=== PATIENT | female | born 1965 | race Caucasian/White ===

== ENCOUNTER → 2024-05-22 07:38 | Outpatient (REF) | payer OTHER, SELFPAY | LOC: HWWDC 07:38 | PROVIDERS: ATTENDING PHYSICIAN Obstetrics & Gynecology; FAMILY PHYSICIAN Internal Medicine | DX: Z12.31 Encounter for screening mammogram for malignant neoplasm of breast (principal) | CPT/HCPCS: 77063; 77067 ==

== ENCOUNTER 2025-05-21 09:18 | Outpatient (RCR) | payer OTHER, SELFPAY | END 2025-05-21 23:59 | disposition home or self-care (01) | LOC: RPT 09:18 | PROVIDERS: ATTENDING PHYSICIAN Obstetrics & Gynecology; FAMILY PHYSICIAN Nurse Practitioner Family | DX: N32.81 Overactive bladder (principal); Z73.6 Limitation of activities due to disability; M62.81 Muscle weakness (generalized) | CPT/HCPCS: 97163; 97530 ==

== ENCOUNTER → 2025-07-09 17:39 | Outpatient (REF) | payer OTHER, SELFPAY | LOC: WDC 17:39 | PROVIDERS: ATTENDING PHYSICIAN Obstetrics & Gynecology; FAMILY PHYSICIAN Internal Medicine | DX: Z12.31 Encounter for screening mammogram for malignant neoplasm of breast (principal) | CPT/HCPCS: 77063; 77067 ==

== ENCOUNTER 2025-07-11 14:41 | Outpatient (RCR) | payer OTHER, SELFPAY | END 2025-07-11 23:59 | disposition home or self-care (01) | LOC: RPT 14:41 | PROVIDERS: ATTENDING PHYSICIAN Obstetrics & Gynecology; FAMILY PHYSICIAN Nurse Practitioner Family | DX: N32.81 Overactive bladder (principal); Z73.6 Limitation of activities due to disability; M62.81 Muscle weakness (generalized) | CPT/HCPCS: 97112; 97530 ==

== ENCOUNTER 2025-08-08 14:03 | Outpatient (RCR) | payer OTHER, SELFPAY | END 2025-08-08 23:59 | disposition home or self-care (01) | LOC: RPT 14:03 | PROVIDERS: ATTENDING PHYSICIAN Obstetrics & Gynecology; FAMILY PHYSICIAN Nurse Practitioner Family | DX: N32.81 Overactive bladder (principal); Z73.6 Limitation of activities due to disability; M62.81 Muscle weakness (generalized) | CPT/HCPCS: 97014; 97110; 97112; 97530 ==

== ENCOUNTER → 2025-09-12 12:51 | Outpatient (REF) | payer OTHER, SELFPAY | LOC: WDC 12:51 | PROVIDERS: ATTENDING PHYSICIAN Obstetrics & Gynecology; FAMILY PHYSICIAN Internal Medicine | DX: R92.30 Dense breasts, unspecified (principal) | CPT/HCPCS: 76641 ==

== ENCOUNTER 2025-09-26 08:15 | Outpatient (RCR) | payer OTHER, SELFPAY | END 2025-09-27 07:02 | disposition home or self-care (01) | LOC: RPT 08:15 | PROVIDERS: ATTENDING PHYSICIAN Obstetrics & Gynecology; FAMILY PHYSICIAN Nurse Practitioner Family | DX: N32.81 Overactive bladder (principal); Z73.6 Limitation of activities due to disability; M62.81 Muscle weakness (generalized) | CPT/HCPCS: 97110; 97112; 97530 ==